=== PATIENT | male | born 1995 | race African-American/Black ===

== ENCOUNTER 2017-04-02 16:30 | Emergency (ER) | payer SELFPAY ==
[2017-04-02 16:37] VITALS: BP 139/91
--- NOTE | 2017-04-02 16:43 | ER Document Report ---
HPI - HPI Patient complains to provider of: rash Onset: Other - all summer Onset/Duration: Persistent Pain Level: 2 Context: 21 yo male with hx eczema which always gets worse during carmen has blistery lateral hand, feet rash, with post knee and antecubutal space rash. very pruritic. No fever. Associated Symptoms: None Exacerbated by: Denies Relieved by: Denies - ROS ROS below otherwise negative: Yes Systems Reviewed and Negative: Yes All other systems reviewed and negative - DERM Skin Color: Normal Past Medical History - General Information source: Patient - Social History Smoking Status: Never Smoker Frequency of alcohol use: None Drug Abuse: None Lives with: Family Family History: Reviewed & Not Pertinent Patient has suicidal ideation: No Patient has homicidal ideation: No Renal/ Medical History: Denies: Hx Peritoneal Dialysis Skin Medical History: Reports Hx Eczema Vertical Provider Document - CONSTITUTIONAL Agree With Documented VS: Yes Exam Limitations: No Limitations General Appearance: No Apparent Distress - INFECTION CONTROL TRAVEL OUTSIDE OF THE [place] IN LAST 30 DAYS: No - HEENT HEENT: Normal ENT Exam, Normocephalic Notes: no swelling - NECK Neck: Supple - RESPIRATORY Respiratory: Breath Sounds Normal, No Respiratory Distress O2 Sat by Pulse Oximetry: 98 - CARDIOVASCULAR Cardiovascular: Regular Rate, Regular Rhythm - GI/ABDOMEN Gastrointestinal: Abdomen Soft, Abdomen Non-Tender - MUSCULOSKELETAL/EXTREMETIES Musculoskeletal/Extremeties: AYLEEN MANUEL - NEURO Level of Consciousness: Awake, Alert, Appropriate Motor/Sensory: No Motor Deficit, No Sensory Deficit - DERM Integumentary: Rash - dyshidrotic eczema, tiny vesicular, chronic, lateral farshad. hands and feet, dry excoriated rash post farshad knees and antecubital spaces Course - Vital Signs Vital signs: Temp Pulse Resp BP Pulse Ox 98.6 F 53 L 139/91 H 98 04/02/17 16:36 04/02/17 16:36 04/02/17 16:36 04/02/17 16:36 Discharge - Discharge Clinical Impression: Dyshidrotic eczema, possible scabies Condition: Good Disposition: HOME, SELF-CARE Instructions: Anti-Mite Skin Creams, Topical Steroid Cream or Ointment ([facility]) Additional Instructions: call and schedule appt with dr cross the storage administrator in [place] after the anti-mite cream (elimite) wash off in 12 hours topical steroid ointment to er any concerns Corticosteroids. High-potency corticosteroid creams and ointments may help speed the disappearance of the blisters. Wrapping the treated area in plastic wrap can improve absorption. Moist compresses also may be applied after the application of a corticosteroid to enhance the absorption of the medication. In severe cases, your doctor may prescribe corticosteroid pills, such as prednisone. Long-term use of steroids can cause serious side effects. Phototherapy. If other treatments aren't effective, your doctor may recommend a special kind of light therapy that combines exposure to ultraviolet light with drugs that help make your skin more receptive to the effects of this type of light. storage administrator can prescribe: Immune-suppressing ointments. Medications such as tacrolimus (Protopic) and pimecrolimus (Elidel) may be helpful for people who want to limit their exposure to steroids. A side effect of these drugs is an increased risk of skin infections. Please complete the patient satisfaction survey if you get one, and return it.. If you do not receive a survey, then you can go to the [facility] website, [email or web address] and place your comments about your very good care. Thank you very much. It was a pleasure being your medical provider today. Prescriptions: Permethrin [Elimite] 60 gm TP ONCE PRN #1 cream..g. PRN Reason: Triamcinolone Acetonide [Aristocort 0.1% Ointment] 1 applic TP BID #60 gm Referrals: DIA CROSS DO [ACTIVE STAFF] - Follow up as needed
== END 2017-04-02 17:10 | disposition home or self-care (01) ==
LOC: ER 16:30
DX: L30.1 Dyshidrosis [pompholyx] (principal)
CPT/HCPCS: 99282

== ENCOUNTER 2019-09-07 00:24 | Emergency (ER) | payer SELFPAY ==
[2019-09-07] MEDS ORDERED: KETOROLAC TROMETHAMINE 60 MG/2 ML SDV IM ONE (00:34)
--- NOTE | 2019-09-07 00:36 | ER Document Report ---
ED Medical Screen (RME) - General Chief Complaint: Ankle Injury Stated Complaint: ANKLE INJURY Time Seen by Provider: 09/07/19 00:34 Notes: 23-year-old male presents with right ankle pain that started around 8 PM. Patient states he was playing basketball and states he came down on his ankle and believes that it may have inverted. Patient states it hurts all over. Patient denies taking anything prior to arrival for pain. Patient states he has injured this ankle previously but has never required surgery for it. Distal pedal pulses 2+. Tenderness throughout. Cap refill less than 2 seconds. I have greeted and performed a rapid initial assessment of this patient. A comprehensive ED assessment and evaluation of the patient, analysis of test results and completion of the medical decision making process with be conducted by additional ED providers. TRAVEL OUTSIDE OF THE [place] IN LAST 30 DAYS: No - Related Data Allergies/Adverse Reactions: No Known Allergies Allergy (Unverified 04/02/17 16:35) Past Medical History Pulmonary Medical History: Reports: Hx Asthma Renal/ Medical History: Denies: Hx Peritoneal Dialysis Skin Medical History: Reports Hx Eczema Physical Exam - Vital signs Vitals: Temp Pulse Resp BP Pulse Ox 98.5 F 87 18 131/86 H 98 09/07/19 00:29 09/07/19 00:29 09/07/19 00:29 09/07/19 00:29 09/07/19 00:29 Course - Vital Signs Vital signs: Temp Pulse Resp BP Pulse Ox 98.5 F 87 18 131/86 H 98 09/07/19 00:29 09/07/19 00:29 09/07/19 00:29 09/07/19 00:29 09/07/19 00:29
[2019-09-07] MEDS ORDERED: PROMETHAZINE HCL 25 MG TABLET PO ONE (01:17)
[2019-09-07] MEDS ORDERED: OXYCODONE-ACETAMINOPHEN 5-325 MG TABLET PO ONE (01:17)
--- NOTE | 2019-09-07 01:18 | ER Document Report ---
HPI - HPI Time Seen by Provider: 09/07/19 00:34 Pain Level: 5 Context: Patient is a 23-year-old male that comes emergency department for chief complaint of right ankle injury. He states that this evening around 8 PM he was playing basketball, jumped, and came down awkwardly on his right ankle inverting it. He states that it started swelling and he has pain when he tries to walk on it. He denies knee pain, he denies fall injury, he denies any other complaints. He states he has a history of childhood asthma but denies medical history otherwise. Past Medical History - General Information source: Patient - Social History Smoking Status: Never Smoker Frequency of alcohol use: None Drug Abuse: None Lives with: Family Family History: Reviewed & Not Pertinent Patient has suicidal ideation: No Patient has homicidal ideation: No Pulmonary Medical History: Reports: Hx Asthma Renal/ Medical History: Denies: Hx Peritoneal Dialysis Skin Medical History: Reports Hx Eczema Surgical Hx: Negative - Immunizations Immunizations up to date: Yes Hx Diphtheria, Pertussis, Tetanus Vaccination: Yes Vertical Provider Document - CONSTITUTIONAL General Appearance: WD/WN, No Apparent Distress - INFECTION CONTROL TRAVEL OUTSIDE OF THE [place] IN LAST 30 DAYS: No - HEENT HEENT: Atraumatic, Normocephalic - NECK Neck: Normal Inspection - RESPIRATORY Respiratory: Breath Sounds Normal, No Respiratory Distress - CARDIOVASCULAR Cardiovascular: Regular Rate, Regular Rhythm - GI/ABDOMEN Gastrointestinal: Abdomen Soft, Abdomen Non-Tender - BACK Back: Normal Inspection - MUSCULOSKELETAL/EXTREMETIES Musculoskeletal/Extremeties: MAEW, FROM, Tender - There is soft tissue swelling over the top of the foot at the base of the ankle and over the lateral malleolus of the right foot. Normal distal pulse and sensation, normal capillary refill, normal coloration, normal leg, knee, hip exam otherwise. - NEURO Level of Consciousness: Awake, Alert, Appropriate Motor/Sensory: No Motor Deficit, No Sensory Deficit - DERM Integumentary: Warm, Dry, No Rash Course - Re-evaluation Re-evalutation: Patient has no severe tenderness, good coloration of the foot, normal distal neurovascular exam, but he does have a swollen right ankle. X-rays negative for fracture. Consistent with a significant sprain. Patient was immobilized with Kiran wrap and ankle stirrup, provided with crutches, I discussed details, recommendations, follow-up, return cautions. Patient states understanding and agreement. Stable time of discharge. - Vital Signs Vital signs: Temp Pulse Resp BP Pulse Ox 98.5 F 87 18 131/86 H 98 09/07/19 00:29 09/07/19 00:29 09/07/19 00:29 09/07/19 00:09/07/19 00:29 Procedures - Immobilization Right ankle Immobilizer type: Kiran wrap, Ankle stirrup Performed by: PCT Post-Proc Neuro Vasc Exam: Normal Alignment checked and good: Yes Discharge - Discharge Clinical Impression: Right ankle swelling Right ankle injury Qualifiers: Encounter type: initial encounter Qualified Code(s): S99.911A - Unspecified injury of right ankle, initial encounter Condition: Stable Disposition: HOME, SELF-CARE Instructions: Kiran Wrap ([facility]), Ankle Stirrup Splint ([facility]), Use of Crutches ([facility]) Additional Instructions: The x-ray does not show a fracture. Your examination does show a lot of soft tissue swelling, this appears to be a significant sprain. I recommend crutches for the next 3 days approximately, elevation, ice, the ankle stirrup and wrap, and the anti-inflammatory as prescribed. Symptoms should gradually resolve. When swelling and pain has resolved resume normal activity. If symptoms continue follow-up with the orthopedics referral listed below. Return for any concerning symptoms including severe worsening swelling or pain. Prescriptions: Naproxen 500 mg PO BID PRN #20 tablet PRN Reason: Referrals: MASOUD MULLEN MD [ACTIVE STAFF] - Follow up in 1 week
--- NOTE | 2019-09-07 01:41 | RADIOLOGY REPORT (SQ) ---
EXAM DESCRIPTION: XR ANKLE 3 OR MORE VIEWS COMPLETED DATE/TME: 09/07/2019 00:34 CLINICAL HISTORY: 23 years, Male, right ankle injury, pain COMPARISON: None. NUMBER OF VIEWS: 3 TECHNIQUE: LIMITATIONS: None. FINDINGS: No acute fracture of the ankle. Alignment is anatomic. Significant soft tissue swelling. Base of fifth metatarsal is not adequately seen IMPRESSION: No acute bony injury is seen to the ankle. Significant soft tissue swelling copyright 2011 [employer]- All Rights Reserved
[2019-09-07 02:05] VITALS: BP 132/75
== END 2019-09-07 02:16 | disposition home or self-care (01) ==
LOC: ER 00:24
DX: S99.911A Unspecified injury of right ankle, initial encounter (principal); M25.471 Effusion, right ankle; M79.89 Other specified soft tissue disorders; X50.0XXA Overexertion from strenuous movement or load, initial encounter; Y93.67 Activity, basketball
CPT/HCPCS: 99283; 73610; J1885